=== PATIENT | male | born 1985 | race Caucasian/White ===

== ENCOUNTER 2017-08-15 17:14 | Emergency (ER) | payer MEDICAID ==
[~2017-08-15] VITALS: Ht 165.1 cm; Wt 99.8 kg
[2017-08-15 17:23] VITALS: Ht 165.1 cm; Wt 99.8 kg
[2017-08-15 18:07] LABS: BASOPHIL % 0.2 % (0-2); PLATELET COUNT 367 x10^3mcL (130-400); RED CELL DISTRIBUTION WIDTH 13.9 % (11.5-14.5)
[2017-08-15 18:37] LABS: CARBON DIOXIDE 26.2 mmol/L (21-32); CREATININE SERUM 1.5 mg/dL (0.7-1.3); POTASSIUM SERUM 4.3 mmol/L (3.5-5.1)
[2017-08-15 18:42] LABS: ALBUMIN 4.2 g/dL (3.4-5.0); BILIRUBIN TOTAL 0.3 mg/dL (0.20-1.00); TOTAL PROTEIN, SERUM 8.2 g/dL (6.4-8.2)
[2017-08-15 20:19] VITALS: BP 128/87
== END 2017-08-15 20:19 | disposition home or self-care (01) ==
LOC: ED 17:14
PROVIDERS: Emergency Medicine
DX: S63.602A Unspecified sprain of left thumb, initial encounter (principal); S41.111A Laceration without foreign body of right upper arm, initial encounter; S20.229A Contusion of unspecified back wall of thorax, initial encounter; S70.11XA Contusion of right thigh, initial encounter; V29.88XA Motorcycle rider (driver) (passenger) injured in other specified transport accidents, initial encounter; Y93.89 Activity, other specified; Y92.89 Other specified places as the place of occurrence of the external cause; Y99.8 Other external cause status
CPT/HCPCS: 90715; J2405; J3010; J7030; Q0092